=== PATIENT | female | born 1995 | race African-American/Black ===

== ENCOUNTER 2024-12-06 19:27 | Emergency (ER) | payer OTHER, SELFPAY ==
[2024-12-06 19:31] VITALS: BP 128/77
[2024-12-06 19:56] LABS: Hematocrit 31.6 % (37.0-47.0); Hemoglobin 10.1 g/dL (12.0-16.0); Mean Corp Hgb Conc. 32.0 g/dL (33.0-37.0); Mean Corpuscular Volume 73.1 fL (81.0-99.0); Nucleated Red Blood Cells % 0 %; Platelet Count 272 10^3/uL (130-400); Red Cell Dist. Width 17.1 % (11.5-14.5)
[2024-12-06 20:11] LABS: Blood Urea Nitrogen 11 mg/dl (7-17); Calcium 9.6 mg/dl (8.4-10.2); Carbon Dioxide 22 mmol/L (22-30); Chloride 104 mmol/L (98-107); Glucose 85 mg/dl (70-99); Potassium 4.4 mmol/L (3.5-5.1); Sodium 133 mmol/L (135-145); eGFR > 60.00
[2024-12-06 20:34] VITALS: BMI 39.7
[2024-12-06 22:13] VITALS: BP 115/53
[2024-12-06 22:16] LABS: Beta HCG Quantitative 104240.00 mIU/ml
--- NOTE | 2024-12-07 00:18 | ED.GENMED ---
History of Present Illness
General
Chief Complaint: Problems
Source: patient
Exam Limitations: none
Time Seen by Provider: 12/06/24 20:01
Nursing documentation reviewed up to this point in time: agreed with
History of Present Illness
History of Present Illness:
Patient is a 29-year-old at approximately 7 weeks gestation who presents to the emergency department with concerns of vaginal bleeding. Patient states that she began with light pink spotting yesterday which progressed to bright red blood
today. She denies any significant amount of bleeding or passing any clots. Patient also describes intermittent lower abdominal cramping which she has been feeling since the beginning of this . She denies any dizziness or shortness of
breath. No chest pain. No fevers.
Patient states that her last menstrual period was sometime at the end of September. She believes that she conceived on October 15. Her positive at-home test was November 02. Patient did have her initial intake appointment with her [employer], Dr. Hatch
in [facility] on 11/23 and is scheduled for her initial and person appointment sometime in December.
Patient has a history of 2 medical abortions and 1 living son.
Review of Systems
Review of Systems
Allergies reviewed?: Yes
All Other Systems: ROS reviewed and negative except as documented in HPI and ROS
Phy Exam
Physical Exam
Physical Exam:
Vitals: Patient's vital signs are stable. Afebrile
General: Patient is well appearing, no acute distress. Nontoxic appearing
Skin: Warm and dry, no rashes or lesions
Head: Normocephalic, atraumatic
Eyes: Sclera nonicteric.
Throat: Protecting airway
Neck: Normal ROM, no cervical spine tenderness, no meningismus
Cardiac: Regular rate and rhythm, no murmurs.
Pulm: Normal respiratory effort, no wheezes, rales, rhonchi heard on exam
Abdomen: Abdomen soft. Very mild tenderness in left pelvic region. No palpable masses. No rebound tenderness or guarding.
Extremities: No evidence of cyanosis or edema. 2+ palpable DP pulses bilaterally
Neuro: AAOx3. Grossly intact
Psychiatric: Normal affect.
Course
Orders/Labs/Results
Orders:
Orders
12/06/24 19:42
Type+Screen Urgent
BMP [Basic Metabolic Panel] Urgent
Beta HCG Quantitative Urgent
Is this a screen?: No
Complete Blood Count/With Diff Urgent
12/06/24 22:19
1st Trimester US [US 1st Trimester] Urgent
Comment:
Reason For Exam: vaginal bleeding in
Abnormal Lab Results
12/06/24
19:42
WBC 11.5 H 10^3/uL
(4.8-10.8)
Hgb 10.1 L g/dL
(12.0-16.0)
Hct 31.6 L %
(37.0-47.0)
MCV 73.1 L fL
(81.0-99.0)
MCH 23.4 L pg
(27.0-31.0)
MCHC 32.0 L g/dL
(33.0-37.0)
RDW 17.1 H %
(11.5-14.5)
MPV 11.4 H fL
(7.4-10.4)
Absolute Neuts (auto) 7.3 H 10^3/uL
(1.4-6.5)
Absolute Monos (auto) 0.7 H 10^3/uL
(0.1-0.6)
Sodium 133 L mmol/L
(135-145)
12/06/24 19:42
12/06/24 19:42
Vital Signs
Initial and Last Documented VS:
Initial Vital Signs
Temp Pulse Resp BP Pulse Ox
98.7 F 70 18 128/77 100
12/06/24 19:31 12/06/24 19:31 12/06/24 19:31 12/06/24 19:31 12/06/24 19:31
Last Documented Vital Signs
Temp Pulse Resp BP Pulse Ox
98.7 F 97 20 118/60 100
12/06/24 19:31 12/07/24 00:44 12/07/24 00:44 12/07/24 00:44 12/07/24 00:44
Information
Weeks gestation: Weeks: (9 weeks 1 day)
Location: Location: (Intrauterine)
MDM/Problems Addressed
Differential Diagnosis Includes:
Not limited to: Threatened , missed , subchorionic hemorrhage, ectopic , etc.
MDM/Problems Addressed:
29-year-old at estimated 8 weeks gestation presenting with light vaginal bleeding since yesterday. She has had mild abdominal cramping and lightheadedness throughout duration of . No shortness of breath or syncopal episodes. Patient
established at [facility] [facility] [facility] in the [facility], however, has not had ultrasound yet this . Vitals and physical exam as above.
Differential as above. ED plan: labs, HCG, type & screen, ultrasound. Will reassess after above.
Update: labs reviewed. Very mild leukocytosis and anemia noted. Chemistry unremarkable. hCG elevated to [id number]. Ultrasound shows intrauterine gestation dating approximately 9 weeks 1 day with heart rate of 167 BPM. No evidence of subchorionic
hemorrhage or at adnexal masses.
Discussed with patient at length regarding ultrasound report. Discussed concern for threatened miscarriage given bleeding in early . No evidence of significant bleeding or passage of clots. She has remained hemodynamically stable.
Ultimately feel stable for discharge home with continued [employer] f/u outpatient for serial hCGs and repeat ultrasounds. Blood type B+ � Rhogam not indicated. Return precaution discussed. Patient comfortable with plan.
Chronic conditions affecting care:
N/A
Acute Exacerbation and/or Progression of Chronic Illness:
N/A
*Radiology
Radiology exam reviewed: radiology read reviewed
*Pulse Oximetry
SaO2: 100
Oxygen Mode of Delivery: Room air
Patient hypoxic: no
*EKG
Interpreted by ED Provider?: NA
*Fire Control Technician G Interpretation
Rate: Fire Control Technician G- N/A
*Critical Care Note
Total Time (30-74mins, 75-104mins- exclusive of procedures): Not Applicable
ED Attending Note
-
Portions of this chart may have been created with voice recognition software.� Occasional wrong word or��sound alike� substitutions may have occurred due to the inherent limitations of voice recognition software.
Discharge Plan
Departure
Patient Disposition: Home (Routine Discharge)
Date of Disposition: 12/07/24
Time of Disposition: 00:34
Patient with high blood pressure during this ER visit?: No
Condition: Good
Discharge Problem:
Threatened miscarriage
Instructions: Threatened Miscarriage (DC)
Referrals:
UNKNOWN - PT DOES,NOT KNOW [Family Provider]
Activity Restrictions/Additional Instructions:
RETURN TO THE EMERGENCY DEPARTMENT WITH ANY FEVERS, SEVERE ABDOMINAL PAIN, PERSISTENT/HEAVY VAGINAL BLEEDING, PASSAGE OF LARGE CLOTS, LIGHTHEADEDNESS/DIZZINESS, SHORTNESS OF BREATH, OR ANY OTHER CONCERNS
- As discussed�your lab work showed a mild anemia with a hemoglobin of 10.1. Please have this rechecked to ensure trending up. Your test was positive and your ultrasound showed an intrauterine measuring about 9 weeks, 1 day
with a heart rate of 167.
- It is important stay well-hydrated. I would recommend pelvic rest until cleared by your [employer]INE [employer]ER.
- As discussed�it is important that you call your [employer]INE [employer]ER tomorrow to schedule follow-up as you will likely require serial ultrasounds and repeat lab work.
Monitor your symptoms very closely and return to the emergency department with any acute worsening/new symptoms or any other concerns
Interventions
Interventions:
*Risk Screen - Suicide Last Done: 12/06/24 19:31
*General Assessment Last Done: 12/06/24 19:31
*Neglect/Abuse Screening Last Done: 12/06/24 19:31
*ED- Fall Risk Assessment Last Done: 12/06/24 20:34
*ED COVID-19 Vaccine History Last Done: 12/06/24 20:34
*Nursing Disposition Last Done: 12/07/24 00:44
ED-Female Genitourinary Assessment Last Done: 12/06/24 20:34
Discharge Date and Time
Discharge Date/Time: 12/07/24 00:46
Print Language: S[place]
[2024-12-07 00:44] VITALS: BP 118/60
== END 2024-12-07 00:46 | disposition home or self-care (01) ==
LOC: EMR 19:27
PROVIDERS: Emergency Medicine; EMERGENCY PHYSICIAN Emergency Medicine
DX: O20.0 Threatened abortion (principal); O99.011 Anemia complicating pregnancy, first trimester; Z3A.08 8 weeks gestation of pregnancy
CPT/HCPCS: 99284; 76801; 80048; 84702; 85025; 86850; 86900; 86901